=== PATIENT | female | born 1950 | race Caucasian/White ===

== ENCOUNTER → 2016-12-24 | Outpatient (CLI) | payer MEDICARE, OTHER ==
[2014-05-30 09:55] VITALS: BP 143/76
[~2016-12-24] MED LIST: ASPI-482 PO; CHOL500016 PO; HYDR1TAB10 PO; LEVO75TA PO; OMEG10006 PO; RALO60TA PO; VENTOLIN HFA18 GM INH
[2016-12-24 16:10] LABS: BASO % 1 % (0-3); EOS % 2 % (0-3); HEMATOCRIT 40.7 % (36.0-47.0); HEMOGLOBIN 13.6 g/dL (12.0-15.5); LYMPH % 30 % (24-48); MEAN CORPUSCULAR HEMOGLOBIN 30 pg (25-35); MEAN CORPUSCULAR HGB CONC 33 g/dL (31-37); MEAN CORPUSCULAR VOLUME 91 fL (79-100); MONO % 6 % (0-9); NEUT % 61 % (31-73); PLATELET COUNT 187 x10^3/uL (140-400); RED BLOOD COUNT 4.49 x10^6/uL (3.50-5.40); WHITE BLOOD COUNT 6.7 x10^3/uL (4.0-11.0)
--- NOTE | 2016-12-24 17:05 | RAD ---
Examination: CT of the abdomen pelvis without contrast History: History of right lower quadrant abdominal pain, hematuria Comparison: None available Technique: Axial CT images of the abdomen pelvis were performed without contrast. Coronal and sagittal reformats were performed PQRS Compliance Statement: One or more of the following individualized dose reduction techniques were utilized for this examination: 1. Automated exposure control 2. Adjustment of the mA and/or kV according to patient size 3. Use of iterative reconstruction technique Findings: The visualized bibasal lungs grossly appears unremarkable. No evidence of free air identified in the abdomen. The evaluation of the solid organs is limited due to lack of IV contrast. The evaluation of the bowel is limited due to lack of oral contrast. The visualized noncontrasted liver, spleen, adrenals grossly appears unremarkable. The visualized pancreas grossly appears unremarkable. The stomach is mildly distended. The gallbladder is mildly distended. The small bowel is nondilated. Feces and gas noted in the colon. Few sigmoid colon diverticulosis identified. The appendix grossly appears unremarkable. There is mild inflammatory fat stranding identified in the right mid abdomen in the region of the omentum just lateral to the right lobe of the liver extending inferiorly to the level of ascending colon. The caliber of the aorta grossly appears unremarkable. Mild aortic atherosclerosis. No evidence of intrarenal collecting system calculi or hydronephrosis. The visualized uterus, adnexa grossly appears unremarkable. Urinary bladder is mildly distended. No evidence of lytic bony destructive lesion. Impression: 1. 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 2. Normal-appearing appendix. No evidence of intrarenal collecting system calculi or hydronephrosis. 3. Few sigmoid diverticulosis.
== END | disposition home or self-care (01) ==
LOC: CT 15:48
PROVIDERS: ATTEND Family Medicine
DX: K57.30 Diverticulosis of large intestine without perforation or abscess without bleeding (principal); R31.9 Hematuria, unspecified
CPT/HCPCS: 36415; 74176; 85027